=== PATIENT | male | born 1970 | race Caucasian/White ===

== ENCOUNTER 2017-06-14 08:14 | Emergency (ER) | payer SELFPAY ==
--- NOTE | 2017-06-14 10:13 | UC ---
Lower Extremity/Ankle HPI - HPI Summary HPI Summary: HAS HAD RIGHT ANKLE PAIN AND SWELLING FOR ABOUT A WEEK. 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 DOES NOT RECALL ANY DISCRETE INJURY., THIS MORNING WOKE UP WITH DISCOLORATION TO MEDIAL SIDE OF RIGHT ANKLE AND IS CONCERNED ABOUT TICK BITE AND LYME DISEASE. DENIES FEVERS, SALINAS, MYALGIAS OR ANY OTHER SYSTEMIC SYMPTOMS. - History of Current Complaint Chief Complaint: UCLowerExtremity Stated Complaint: TICK BITE Time Seen by Provider: 06/14/17 09:32 Hx Obtained From: Patient Onset/Duration: Gradual Onset, Lasting Days, Still Present Severity Initially: Moderate Severity Currently: Moderate Pain Intensity: 4 Pain Scale Used: 0-10 Numeric Aggravating Factor(s): Ambulation - worse with ankle flexion Alleviating Factor(s): Rest Able to Bear Weight: Yes - Allergies/Home Medications Allergies/Adverse Reactions: Allergies Allergy/AdvReac Type Severity Reaction Status Date / Time No Known Allergies Allergy Verified 06/14/17 08:22 Home Medications: Home Medications NK [No Home Medications Reported] 06/14/17 [History Confirmed 06/14/17] PMH/Surg Hx/FS Hx/Imm Hx Previously Healthy: Yes - Surgical History Surgical History: None - Family History Known Family History: Negative: Hypertension, Diabetes - Social History Alcohol Use: Daily Substance Use Type: Marijuana Smoking Status (MU): Heavy Every Day Tobacco Smoker Amount Used/How Often: 1 ppd Review of Systems Constitutional: Negative Skin: Bruising Respiratory: Negative Cardiovascular: Negative Gastrointestinal: Negative Musculoskeletal: Arthralgia All Other Systems Reviewed And Are Negative: Yes Physical Exam Triage Information Reviewed: Yes Appearance: Well-Appearing, No Pain Distress, Well-Nourished Vital Signs: Initial Vital Signs Temp 97.8 F 06/14/17 08:17 Pulse 80 06/14/17 08:17 Resp 16 06/14/17 08:17 BP 129/80 06/14/17 08:17 Pulse Ox 100 06/14/17 08:17 Vital Signs Reviewed: Yes Eyes: Positive: Conjunctiva Clear ENT: Positive: Hearing grossly normal Neck: Positive: Supple Respiratory: Positive: No respiratory distress, No accessory muscle use Cardiovascular: Positive: Pulses Normal Abdomen Description: Positive: Soft Musculoskeletal: Positive: ROM Intact, Edema @ - MILD EDEMA RIGHT ANKLE, Other: - TTP RIGHT MEDIAL MALLEOLUS AND MALLEOLAR ZONE. ACHILLES INTACT Neurological: Positive: Alert Psychological: Positive: Age Appropriate Behavior Skin: Positive: Other - BRUISING RIGHT MEDIAL ANKLE. Negative: rashes Lower Extremity Course/Dx - Course Course Of Treatment: DISCUSSED INDICATION FOR ANKLE XRAY. PT MEETS [facility] [place] [facility] [place] [facility]. PT DECLINES. WANTS TO TRY CONSERVATIVE MGMT FIRST WITH REST AND RICHIE WRAP. STATES HE WILL RETURN IF NOT IMPROVING OVER THE NEXT WEEK. - Differential Dx/Diagnosis Differential Diagnosis/HQI/PQRI: Fracture (Closed), Sprain Provider Diagnoses: CONTUSION RIGHT ANKLE Discharge - Discharge Plan Condition: Stable Disposition: HOME Patient Education Materials: Ankle Sprain (ED) Forms: *Work Release Referrals: Boni BROWNING,Juno Lee [Primary Care Provider] - If Needed Additional Instructions: THE DISCOLORATION ON YOUR ANKLE IS CONSISTENT IN APPEARANCE WITH BRUISING. IT DOES NOT LOOK LIKE THE LYME DISEASE RASH AT ALL. YOU MAY NEED AN XRAY IF YOUR SYMPTOMS ARE NOT IMPROVING. Rest the involved area. You may need to be off your injury for some time to allow for healing, however excessive immobilization of joints can lead to stiffness and delay healing time. Early mobilization is encouraged if it is pain -free. Ice. Not directly on the skin. Cover with a towel. Apply ice no more than 30 minutes at a time Compression: You may use and keep an richie wrap bandage over the injury to decrease swelling. Again, this should be limited and be taken off periodically to encourage early range of motion and mobilization. Elevate: Try to elevate the injured area above the heart whenever possible. CALL THE NUMBER BELOW FOR ASSISTANCE IN ESTABLISHING WITH A PCP An additional resource available to assist in finding the appropriate physician for your health care needs is [facility] ([facility]). You may contact them by calling [phone].
== END 2017-06-14 10:29 | disposition home or self-care (01) ==
LOC: UCEAST 08:14
DX: S90.01XA Contusion of right ankle, initial encounter (principal); X58.XXXA Exposure to other specified factors, initial encounter; Y93.9 Activity, unspecified; Y92.9 Unspecified place or not applicable; Y99.9 Unspecified external cause status; Z72.0 Tobacco use
CPT/HCPCS: 99201; G0463